=== PATIENT | female | born 1995 | race Hispanic/Latino ===

== ENCOUNTER → 2017-01-29 | Outpatient (CLI) | payer OTHER ==
[~2017-01-29] MED LIST: ACET50TA PO; COLA100C3 PO; IBUP600T26 PO; PRENTAB9 PO
[2017-01-29 11:21] LABS: MEAN CORPUSCULAR HEMOGLOBIN 30.1 pg (27.0-33.0); MEAN CORPUSCULAR HGB CONC 34.6 g/dl (32.0-36.5); MEAN CORPUSCULAR VOLUME 87.1 fl (80.0-96.0); RED CELL DISTRIBUTION WIDTH 13.2 % (11.5-14.5); WHITE BLOOD COUNT 13.9 K/mm3 (4.0-10.0)
[2017-01-29 11:37] LABS: ALBUMIN 2.8 GM/DL (3.2-5.2); ALBUMIN/GLOBULIN RATIO 0.82 (1.00-1.93); ALKALINE PHOSPHATASE 232 U/L (45-117); ALT/SGPT 20 U/L (12-78); ANION GAP 7 MEQ/L (8-16); AST/SGOT 10 U/L (15-37); BILIRUBIN,TOTAL 0.7 MG/DL (0.2-1.0); BLOOD UREA NITROGEN 10 MG/DL (7-18); CALCIUM LEVEL 8.4 MG/DL (8.5-10.1); CARBON DIOXIDE LEVEL 25 MEQ/L (21-32); CHLORIDE LEVEL 105 MEQ/L (98-107); CREATININE FOR GFR 0.53 MG/DL (0.55-1.02); GLOMERULAR FILTRATION RATE > 60.0 (>60); GLUCOSE, FASTING 76 MG/DL (70-105); SODIUM LEVEL 137 MEQ/L (136-145); TOTAL PROTEIN 6.2 GM/DL (6.4-8.2); URIC ACID 5.6 MG/DL (2.6-6.0)
== END ==
LOC: M LAB 10:43
PROVIDERS: ATTEND Midwife
DX: Z36 Encounter for antenatal screening of mother (principal)

== ENCOUNTER 2017-01-30 03:57 | Inpatient (IN) | payer OTHER ==
[2017-01-30] VITALS (21 sets, daily range): BP systolic 100–139; BP diastolic 59–87
[~2017-01-30] VITALS: Ht 172.7 cm; Wt 101.0 kg
[2017-01-30] MEDS ORDERED: LR 1,000 ML IV SCH (04:36)
[2017-01-30] MEDS ORDERED: LACTATED RINGER'S 1000 ML IV STA (04:36)
[2017-01-30 05:11] LABS: MEAN CORPUSCULAR HGB CONC 34.4 g/dl (32.0-36.5); RED CELL DISTRIBUTION WIDTH 13.3 % (11.5-14.5)
[2017-01-30] MEDS ORDERED: FENTANYL 2MCG/ML ROPIVACAINE 0.2% IN 0.9% NACL 200ML IVBAG As Ordered ONE (05:19)
[2017-01-30] MEDS ORDERED: PRENTAB9 PO (05:55)
[2017-01-30] MEDS ORDERED: OXYTOCIN DRIP 30 UNITS in APPROPRIATE DILUENT 1 EA IV SCH ×2 (06:45→09:45)
--- NOTE | 2017-01-30 08:28 | IPNPDOC ---
Obstetrical Progress Note Date of Service The patient was seen on 01/30/17 at 08:18. Progress Note [id number] @ 0800 Assumed care @ [address] Holley 21 yo @ 39+2 by 7 wk US done on [id number] presented to L&D SROM clear fluid [id number] @ 1600. S: comfortable resting on left side with epidural infusing. Spouse is at bedside. O: VS- WNL, afebrile FHR- 120, moderate, + accels, intermittent lates CTX- Q 4-5 min, lasting < 90 sec, palpated as strong, resting tone palpated as soft SVE- anterior lip/100/0, soft/vtx/ant Pitocin @ 2 mU/min SROM x 16 hours, fluid remains clear A: 21 yo @ 39+2 with SROM x 16 hours shows no s/s of infection, continues to make cervical change, CAT II FHR Tracing. P: continue to monitor and assess, reassess in 1 hour or prn, leave pitocin @ 2mU/min, continue to monitor temp-initiate abx if appropriate. VS, I&O, 24H, Fishbone Laboratory Data 24H LABS Laboratory Tests 2 01/30/17 04:59: 01/30/17 04:59: Serology Scanned Report Hepatitis B Testing CBC/BMP Laboratory Tests 01/30/17 04:59 Red Blood Count 4.46, Mean Corpuscular Volume 87.0, Mean Corpuscular Hemoglobin 30.0, Mean Corpuscular Hemoglobin Concent 34.4, Red Cell Distribution Width 13.3 REY JOHNS CNM Jan 30, 2017 08:28
[2017-01-30] MEDS ORDERED: REFRIGERATOR IV KEYS XX PRN (08:30)
[2017-01-30] MEDS ORDERED: ePHEDrine SULFATE 25 MG/5 ML(5MG/ML) SYRINGE IV PRN (08:30)
[2017-01-30] MEDS ORDERED: EPIDURAL COMMENT XX SCH (08:30)
[2017-01-30] MEDS ORDERED: ONDANSETRON 4MG/2ML VIAL (J2405) IV PRN ×2 (08:30→09:45)
[2017-01-30] MEDS ORDERED: NALOXONE INJ 0.4 MG/1 ML VIAL (J2310) IV PRN (08:30)
[2017-01-30] MEDS ORDERED: EPIDURAL/PCA KEYS XX PRN (08:30)
[2017-01-30] MEDS ORDERED: LACTATED RINGER'S 1000 ML IV PRN (08:30)
[2017-01-30] MEDS ORDERED: FENTANYL/ROPIVACAINE/NACL BAG 200 ML EPIDURAL SCH (08:30)
[2017-01-30] MEDS ORDERED: diphenhydrAMINE INJ 50MG/ML VIAL (J1200) IV PRN (08:30)
--- NOTE | 2017-01-30 09:44 | DNPDOC ---
Delivery Note Delivery Note DATE OF DELIVERY: Jan 30, 2017 at 0857 PREDELIVERY DIAGNOSIS: 39+2 weeks' gestation and labor. POST DELIVERY DIAGNOSIS: Delivered. PROCEDURE: TRACE EVIDENCE TECHNICIAN: Rey Johns CNM ANESTHESIA: epidural ESTIMATED BLOOD LOSS: 250 mL. FINDINGS: 6 pound 5 ounce male , Score 9/10 DELIVERY SUMMARY: Patient is a 21-year-old 2 now para 2002 who was admitted to labor and delivery for SROM as 1600 hours on [id number]. SHe progressed to c/c/+2 with epidural infusing and a strong desire to push; bulging bag with meconium noted. AROM. Delivery was via of a viable male infant to a clean field; the presented occiput anterior with no nuchal cord noted; anterior shoulder(left) delivered with mild downward traction, then the posterior shoulder delivered with mild upward traction; remainder of corpus delivered spontaneously with membranes over the face. When membranes removed infant began to cry vigorously; infant placed on mother's abdomen. Bulb suction was performed and initial cleaning completed, delayed cord clamping x 3 minutes , then cord clamped x 2 and cut by FOB; the child continued to have a vigorous cry and was moved to mother's chest for [id number]; pitocin was started with delivery of the anterior shoulder; 3 vessel cord and normal placenta were delivered without complications approx 4 minutes later; fundal massage was applied and vaginal vault was swept for clots; vagina and perineum examined; right & left labial abrasion noted, pressure applied x 5 min. Continued to have bleeding, figure 8 placed, on each side. Excellent hemostasis noted after repair; Fundus firm at U-1. GSI=709 ml, Infant had 9/10; mother and are bonding well and were stable in the delivery room; anticipate routine PP course. REY JOHNS CNM Jan 30, 2017 09:44
[2017-01-30] MEDS ORDERED: DOCUSATE SODIUM 100 MG CAP PO PRN (09:45)
[2017-01-30] MEDS ORDERED: ACETAMINOPHEN 500 MG TAB PO PRN (09:45)
[2017-01-30] MEDS ORDERED: ANUSOL HC CREAM 30GM TOP PRN (09:45)
[2017-01-30] MEDS ORDERED: IBUPROFEN 800 MG TAB PO PRN (09:45)
[2017-01-30] MEDS ORDERED: DIBUCAINE 1% OINTMENT 30GM TOP PRN (09:45)
[2017-01-30] MEDS ORDERED: PROMETHAZINE 25 MG TAB PO PRN (09:45)
[2017-01-31 05:45] VITALS: BP 120/84
--- NOTE | 2017-01-31 06:10 | IPNPDOC ---
Text Note Date of Service The patient was seen on 01/31/17. NOTE PPD 1 Sandra is a 21yo doing well on PPD 1 s/p uncomplicated at 39w2d on 01/30 at 0857. She is . Lochia minimal, spontaneously voiding and ambulating without difficulty. Tolerating regular diet. Denies f/c/n/v/SOB/CP/MALDONADO /abdominal pain. Vitals wnl, afebrile Exam: General: WDWN, NAD, resting comfortably Cardiac: S1S2 present, no murmur Lungs: CTAB without wheeze/crackles Abdomen: soft, NTTP, fundus firm u-2cm Extremities: no tenderness of calves bilaterally Assessment: Sandra is a 21yo doing well on PPD 1 s/p uncomplicated at 39w2d on 01/30 at 0857. Vitals wnl, benign exam. No e/o infection, hemodynamically stable. Plan: -routine care -motrin/tylenol prn pain -encourage and ambulation -likely discharge to home tomorrow Dr. Matty Chatterjee MD [place]DESTO VS,Estefania, I+O VSEstefania, I+O Vital Signs Date Time Temp Pulse Resp B/P Pulse Ox O2 Delivery O2 Flow Rate FiO2 01/31/17 05:45 98.9 94 16 120/84 I&O- Last 24 Hours up to 6 AM 01/31/17 05:59 Intake Total 3501.6 ml Output Total 930 ml Balance 2571.6 ml MATTY CHATTERJEE MD Jan 31, 2017 06:10
[2017-01-31] MEDS: PRENATAL VITAMIN TAB PO SCH (09:00)
[2017-01-31 14:06] VITALS: BP 118/64
[2017-01-31 18:00] VITALS: BP 131/87
[2017-02-01 06:25] VITALS: BP 131/72
[2017-02-01] MEDS: PRENATAL VITAMIN TAB PO SCH (09:00)
[2017-02-01] MEDS ORDERED: IBUP600T26 PO (10:52)
[2017-02-01] MEDS ORDERED: ACET50TA PO (10:52)
[2017-02-01] MEDS ORDERED: COLA100C3 PO (10:52)
== END 2017-02-01 13:30 | disposition home or self-care (01) | DRG 775 ==
LOC: M LDO 03:57 → M LDI 04:16 → M OBS 11:18
PROVIDERS: ADMIT Student in an Organized Health Care Education/Training Program; ATTEND Student in an Organized Health Care Education/Training Program
PROC: 10E0XZZ Delivery of Products of Conception, External Approach (ICD-10-PCS; principal; 2017-01-30)
PROC: 10907ZC Drainage of Amniotic Fluid, Therapeutic from Products of Conception, Via Natural or Artificial Opening (ICD-10-PCS; 2017-01-30)
DX: O13.4 Gestational [pregnancy-induced] hypertension without significant proteinuria, complicating childbirth (principal); Z37.0 Single live birth; Z3A.39 39 weeks gestation of pregnancy; E66.9 Obesity, unspecified; O99.214 Obesity complicating childbirth